=== PATIENT | female | born 1950 | race Two or more races ===

== ENCOUNTER 2020-07-28 14:35 | Emergency (ER) | payer OTHER ==
[~2020-07-28] VITALS: Ht 165.1 cm; Wt 90.7 kg
[~2020-07-28 14:35] MED LIST: ATACAND HCT 11 UDTA1 PO; GLIBURIDE; HUMOLIN N; NEURONTIN250 MG/5 M PO; SINVASTATIN; SYNTHROID50 MCG PO; [UNRECOGNIZED DRUG - OTHER]
== END 2020-07-28 19:39 | disposition home or self-care (01) ==
LOC: ER 14:35
DX: B34.9 Viral infection, unspecified (principal); R53.1 Weakness

== ENCOUNTER → 2021-02-17 08:30 | Outpatient (CLI) | payer OTHER | END | disposition home or self-care (01) | LOC: NUCLEAR 07:00 | PROVIDERS: ATTEND Internal Medicine Hematology & Oncology | DX: E85.89 Other amyloidosis (principal); D47.2 Monoclonal gammopathy; C88.0 Waldenstrom macroglobulinemia | CPT/HCPCS: 78816; A9552 ==